=== PATIENT | male | born 1955 | race Caucasian/White ===

== ENCOUNTER 2017-06-08 13:45 | Emergency (ER) | payer BC, OTHER ==
[~2017-06-08] VITALS: Ht 182.9 cm; Wt 74.8 kg
[2017-06-08 13:59] VITALS: BP 129/96
--- NOTE | 2017-06-08 14:27 | ED Cough/URI ---
General Chief Complaint: Cough/Cold/Flu Symptoms Stated Complaint: FLU Nursing Triage Note: PT REPORTS WAS DIAGNOSED WITH THE FLU 05/26/17. PT REPORTS BODY ACHES AND FEVERS HAVE RESOLVED BUT REPORTS HE HAS HAD INCREASE IN SOA AND PAIN WITH INSPIRATION. PT ALSO REPORTS A DRY PRODUCTIVE COUGH. Source: patient Exam Limitations: no limitations History of Present Illness Time seen by provider: 14:24 Initial Comments The patient is a 62-year-old white male who presents with a chief complaint of cough and general malaise. He reports that on 05/26 he was diagnosed with flu and given medication for the same. He is continued to cough and feels generally fatigued. He now believes he has pneumonia. He has not been running a fever. He is a former smoker but stopped 15 years ago. He does not describe chills or sweats Timing/Duration: week Severity/Quality: moderate, dry cough Associated Symptoms: chest pain/soreness, cough, dizziness Allergies and Home Medications Allergies Coded Allergies: sulfamethoxazole (Verified Adverse Reaction, Unknown, 06/08/17) tamsulosin (Verified Adverse Reaction, Unknown, 06/08/17) trimethoprim (Verified Adverse Reaction, Unknown, 06/08/17) Home Medications Metoprolol Tartrate 25 Mg Tablet, (Reported) Constitutional: see HPI EENTM: no symptoms reported Respiratory: cough, dyspnea on exertion Cardiovascular: no symptoms reported Gastrointestinal: no symptoms reported Genitourinary: no symptoms reported Musculoskeletal: back pain, muscle pain Skin: no symptoms reported Psychiatric/Neurological: No Symptoms Reported Hematologic/Lymphatic: No Symptoms Reported Immunological/Allergic: no symptoms reported Past Pejdwff-Balbwa-Dhrgvv Hx Patient Social History Alcohol Use: Occasionally Uses Recreational Drug Use: No Smoking Status: Former Smoker Former Smoker, Quit: Jun 26, 2000 Recent Foreign Travel: No Contact w/Someone Who Travel: No Recent Infectious Disease Expo: No Recent Hopitalizations: No Physical Abuse: No Sexual Abuse: No Mistreated: No Fear: No Seasonal Allergies Seasonal Allergies: No Respiratory History of Respiratory Disorde: No Cardiovascular History of Cardiac Disorders: Yes Cardiac Disorders: Hypertension Genitourinary History of Genitourinary Disor: No Gastrointestinal History of Gastrointestinal Di: No Musculoskeletal History of Musculoskeletal Dis: No Endocrine History of Endocrine Disorders: No HEENT History of HEENT Disorders: No Cancer History of Cancer: No Psychosocial History of Psychiatric Problem: No Suicide Risk Score: 0 Integumentary History of Skin or Integumenta: No Blood Transfusions History of Blood Disorders: No Physical Exam Vital Signs Vital Sign - Last 12Hours 06/08/17 13:59 Temp 97.9 Pulse 77 Resp 18 B/P (MAP) 158/94 (115) Pulse Ox 98 O2 Delivery Room Air Capillary Refill : Less Than 3 Seconds General Appearance: mild distress Eyes: Bilateral Eye Normal Inspection HEENT: normal ENT inspection Neck: full range of motion Respiratory: chest non-tender, lungs clear, normal breath sounds, no respiratory distress, no accessory muscle use, respiratory distress Cardiovascular: normal peripheral pulses, regular rate, rhythm, no edema, no gallop, no JVD, no murmur Gastrointestinal: normal bowel sounds, non tender, soft, no organomegaly, no pulsatile mass Extremities: normal range of motion, non-tender, normal inspection, no pedal edema, no calf tenderness, normal capillary refill, pelvis stable Neurologic/Psychiatric: line up examiner II-XII nml as tested, no motor/sensory deficits, alert, normal mood/affect, oriented x 3 Skin: normal color, warm/dry, cyanosis, cool, diaphoresis, damp Lymphatic: no adenopathy Progress/Results/Core Measures Suspected Sepsis Recent Fever Within 48 Hours: No Infection Criteria Present: Suspected New Infection New/Unexplained Altered Menta: No Sepsis Screen: No Definite Risk Sepsis Diagnosis: SIRS Temperature:97.9 Pulse: 77 Respiratory Rate: 18 Laboratory Tests 06/08/17 14:49: White Blood Count 8.9 Blood Pressure 158 /94 Mean: 115 Laboratory Tests 06/08/17 14:49: Platelet Count 275 Results/Orders Lab Results Laboratory Tests Test 06/08/17 14:49 Range/Units White Blood Count 8.9 4.3-11.0 10^3/uL Red Blood Count 5.12 4.35-5.85 10^6/uL Hemoglobin 15.7 13.3-17.7 G/DL Hematocrit 45 40-54 % Mean Corpuscular Volume 88 80-99 FL Mean Corpuscular Hemoglobin 31 25-34 PG Mean Corpuscular Hemoglobin Concent 35 32-36 G/DL Red Cell Distribution Width 13.3 10.0-14.5 % Platelet Count 275 130-400 10^3/uL Mean Platelet Volume 9.4 7.4-10.4 FL Neutrophils (%) (Auto) 76 H 42-75 % Lymphocytes (%) (Auto) 14 12-44 % Monocytes (%) (Auto) 8 0-12 % Eosinophils (%) (Auto) 2 0-10 % Basophils (%) (Auto) 0 0-10 % Neutrophils # (Auto) 6.7 1.8-7.8 X 10^3 Lymphocytes # (Auto) 1.2 1.0-4.0 X 10^3 Monocytes # (Auto) 0.7 0.0-1.0 X 10^3 Eosinophils # (Auto) 0.2 0.0-0.3 10^3/uL Basophils # (Auto) 0.0 0.0-0.1 10^3/uL Neutrophils % (Manual) 67 % Lymphocytes % (Manual) 13 % Monocytes % (Manual) 10 % Eosinophils % (Manual) 3 % Band Neutrophils 7 % Toxic Granulation 1+ Blood Morphology Comment NORMAL My Orders Orders - BRENNAN WELDON MD Cbc With Automated Diff (06/08/17 14:22) Manual Differential (06/08/17 14:49) Vital Signs/I&O Vital Sign - Last 12Hours 06/08/17 06/08/17 13:59 13:59 Temp 97.9 Pulse 77 Resp 18 B/P (MAP) 158/94 (115) Pulse Ox 98 O2 Delivery Room Air Capillary Refill : Less Than 3 Seconds Blood Pressure Mean: 115 Departure Communication (Admissions) Family Conversation 1526 x-ray and CBC reviewed with patient. Impression Impression: Primary Impression: Influenza-like symptoms Disposition: 01 HOME, SELF-CARE Condition: Stable/Unchanged Departure-Patient Inst. Decision time for Depature: 15:24 Referrals: NO,LOCAL PHYSICIAN (PCP) Primary Care Physician Patient Instructions: Flu, Adult (DC) Add. Discharge Instructions: All discharge instructions reviewed with patient and/or family. Voiced understanding. You should be nearing the end of the flu symptoms. Continue extra rest, lots of liquids, use Aleve or Advil to reduce aches. A steamy shower may aid taking a deep breath. BRENNAN WELDON MD Jun 08, 2017 14:27
[2017-06-08] MEDS ORDERED: METO-333 (14:35)
--- NOTE | 2017-06-08 14:57 | Diagnostic Imaging Report ---
INDICATION: Cough and rib pain. PA and lateral views of the chest were obtained. FINDINGS: The heart size is normal. There is some right upper lobe atelectasis and/or pneumonitis. There is no pleural effusion or pneumothorax. The mediastinum is unremarkable. IMPRESSION: Right upper lobe atelectasis and/or pneumonitis. Dictated by: Dictated on workstation # [id number]
[2017-06-08 14:58] LABS: BASOPHILS % (AUTO) 0 % (0-10); EOSINOPHILS # (AUTO) 0.2 10^3/uL (0.0-0.3); EOSINOPHILS % (AUTO) 2 % (0-10); HEMATOCRIT 45 % (40-54); HEMOGLOBIN 15.7 G/DL (13.3-17.7); LYMPHOCYTES # (AUTO) 1.2 X 10^3 (1.0-4.0); LYMPHOCYTES % (AUTO) 14 % (12-44); MEAN CORPUSCULAR HEMOGLOBIN 31 PG (25-34); MEAN CORPUSCULAR HGB CONC 35 G/DL (32-36); MEAN CORPUSCULAR VOLUME 88 FL (80-99); MEAN PLATELET VOLUME 9.4 FL (7.4-10.4); MONOCYTES # (AUTO) 0.7 X 10^3 (0.0-1.0); MONOCYTES % (AUTO) 8 % (0-12); NEUTROPHILS # (AUTO) 6.7 X 10^3 (1.8-7.8); NEUTROPHILS % (AUTO) 76 % (42-75); PLATELET COUNT 275 10^3/uL (130-400); RED BLOOD COUNT 5.12 10^6/uL (4.35-5.85); RED CELL DISTRIBUTION WIDTH 13.3 % (10.0-14.5); WHITE BLOOD COUNT 8.9 10^3/uL (4.3-11.0)
[2017-06-08 15:13] LABS: BAND NEUTROPHILS 7 %; EOSINOPHILS % (MANUAL) 3 %; LYMPHOCYTES % (MANUAL) 13 %; MONOCYTES % (MANUAL) 10 %; NEUTROPHILS % (MANUAL) 67 %
[2017-06-08 15:14] LABS: RBC MORPH NORMAL; TOXIC GRANULATION/VACUOLAZATIO 1+
== END 2017-06-08 15:34 | disposition home or self-care (01) ==
LOC: ER 13:51
DX: J11.1 Influenza due to unidentified influenza virus with other respiratory manifestations (principal); I10 Essential (primary) hypertension; Z87.891 Personal history of nicotine dependence
CPT/HCPCS: 36415; 71046; 85007; 85027; 99283

== ENCOUNTER 2021-01-25 19:30 | Emergency (ER) | payer BC ==
[~2021-01-25 19:30] MED LIST: METO-333
--- NOTE | 2021-01-25 19:35 | ED Dyspnea ---
General Stated Complaint: LOW O2 History of Present Illness Date Seen by Provider: Jan 25, 2021 Time Seen by Provider: 19:35 Initial Comments 66-year-old male presents with feeling of shortness of breath/dyspnea. Patient reports that he was diagnosed yesterday with Covid 19. The symptoms started 2 days ago. Patient reports some chronic lung disease on inhaled healers with frequent pneumonia. He was concerned that maybe his oxygen was low and had no way to check it. Patient reports that the feeling shortness of breath is improved. Patient had no other complaints at this time. Allergies and Home Medications Allergies Coded Allergies: sulfamethoxazole (Verified Adverse Reaction, Unknown, 06/08/17) tamsulosin (Verified Adverse Reaction, Unknown, 06/08/17) trimethoprim (Verified Adverse Reaction, Unknown, 06/08/17) Patient Home Medication List Home Medication List Reviewed: Yes Review of Systems Review of Systems Constitutional: No chills, No fever Respiratory: cough, short of breath Cardiovascular: No chest pain Gastrointestinal: no symptoms reported Genitourinary: no symptoms reported Musculoskeletal: no symptoms reported Skin: no symptoms reported Psychiatric/Neurological: No Symptoms Reported Endocrine: No Symptoms Reported Hematologic/Lymphatic: No Symptoms Reported Past Iptxnrp-Iyfbcv-Jyciio Hx Seasonal Allergies Seasonal Allergies: No Past Medical History Respiratory: No Cardiac: Yes Hypertension Genitourinary: No Gastrointestinal: No Musculoskeletal: No Endocrine: No HEENT: No Cancer: No Psychosocial: No Integumentary: No Blood Disorders: No Physical Exam Vital Signs Vital Signs - First Documented 01/25/21 19:32 Temp 35.6 Pulse 70 Resp 18 B/P (MAP) 164/102 (122) Pulse Ox 99 O2 Delivery Room Air Capillary Refill : Height, Weight, BMI Height: 6'" Weight: 165lbs. oz. [id number]; BMI Method:Stated General Appearance: No Apparent Distress, WD/WN Neck: Full Range of Motion, Normal Inspection Respiratory: Lungs Clear, Normal Breath Sounds, No Accessory Muscle Use, No Respiratory Distress Cardiovascular: Regular Rate, Rhythm, No Edema Extremity: Normal Capillary Refill, Normal Inspection Neurologic/Psychiatric: Alert, Oriented x3 Skin: Normal Color, Warm/Dry Progress/Results/Core Measures Results/Orders Lab Results Laboratory Tests Test 01/25/21 19:42 Range/Units White Blood Count 2.6 L 4.3-11.0 10^3/uL Red Blood Count 5.28 4.30-5.52 10^6/uL Hemoglobin 16.5 13.3-17.7 g/dL Hematocrit 47 40-54 % Mean Corpuscular Volume 89 80-99 fL Mean Corpuscular Hemoglobin 31 25-34 pg Mean Corpuscular Hemoglobin Concent 35 32-36 g/dL Red Cell Distribution Width 13.1 10.0-14.5 % Platelet Count 141 130-400 10^3/uL Mean Platelet Volume 9.4 9.0-12.2 fL Immature Granulocyte % (Auto) 0 % Neutrophils (%) (Auto) 35 L 42-75 % Lymphocytes (%) (Auto) 51 H 12-44 % Monocytes (%) (Auto) 12 0-12 % Eosinophils (%) (Auto) 2 0-10 % Basophils (%) (Auto) 0 0-10 % Neutrophils # (Auto) 0.9 L 1.8-7.8 X 10^3 Lymphocytes # (Auto) 1.3 1.0-4.0 X 10^3 Monocytes # (Auto) 0.3 0.0-1.0 X 10^3 Eosinophils # (Auto) 0.1 0.0-0.3 10^3/uL Basophils # (Auto) 0.0 0.0-0.1 10^3/uL Immature Granulocyte # (Auto) 0.0 0.0-0.1 10^3/uL Sodium Level 135 135-145 MMOL/L Potassium Level 3.7 3.6-5.0 MMOL/L Chloride Level 103 98-107 MMOL/L Carbon Dioxide Level 20 L 21-32 MMOL/L Anion Gap 12 5-14 MMOL/L Blood Urea Nitrogen 12 7-18 MG/DL Creatinine 1.09 0.60-1.30 MG/DL Estimat Glomerular Filtration Rate 68 BUN/Creatinine Ratio 11 Glucose Level 97 70-105 MG/DL Calcium Level 8.7 8.5-10.1 MG/DL Corrected Calcium 8.5 8.5-10.1 MG/DL Total Bilirubin 0.7 0.1-1.0 MG/DL Aspartate Amino Transf (AST/SGOT) 28 5-34 U/L Alanine Aminotransferase (ALT/SGPT) 23 0-55 U/L Alkaline Phosphatase 119 40-136 U/L Total Protein 6.5 6.4-8.2 GM/DL Albumin 4.2 3.2-4.5 GM/DL My Orders Orders - RICHARD PRINCE DO Chest 1 View Ap/Pa Only (01/25/21 19:41) Cbc With Automated Diff (01/25/21 19:41) Comprehensive Metabolic Panel (01/25/21 19:41) Vital Signs/I&O 01/25/21 19:32 Temp 35.6 Pulse 70 Resp 18 B/P (MAP) 164/102 (122) Pulse Ox 99 O2 Delivery Room Air Progress Progress Note : Progress Note Patient with low white count consistent with Covid. Patient with a negative chest x-ray, patient's O2 saturations remained in the upper 90s. I recommend he get a pulse ox. I will try to arrange for him to get a Regeneron infusion after discussion of risks and benefits due to his chronic lung disease and high risk. Patient stable and discharged home Diagnostic Imaging Diagonstic Imaging: Xray Plain Films/CT/US/NM/MRI: chest Comments CHEST 1 VIEW AP/PA ONLY HISTORY: Shortness of breath, Covid positive. COMPARISON: 06/08/2017. TECHNIQUE: Frontal view of the chest. FINDINGS: There is chronic scarring in the right upper lobe which appears stable since 2018. No new consolidation is seen. There is no pleural effusion or pneumothorax. The cardiac silhouette is normal in size. IMPRESSION: No acute pulmonary abnormality. Reviewed: Reviewed by Me, Reviewed/Discussed Departure Impression Primary Impression: COVID-19 Disposition: HOME, SELF-CARE Condition: Stable Departure-Patient Inst. Referrals: NO,LOCAL PHYSICIAN (PCP/Family) Primary Care Physician Patient Instructions: COVID-19 ED, REGEN-COV (casirivimab and imdevimab) FDA Fact Sheet RICHARD PRNICE DO Jan 25, 2021 19:35
--- OUTSIDE RECORDS SUMMARY | 2021-01-25 19:35 | XMS REPORT | Clinical Summary ---
Author Author [facility] Organization [facility] Address Unknown Phone Unavailable Care Team Providers Care Bullet Maker Name Role Phone PCP Unavailable Allergies Not on File Medications Not on file Active Problems Problem Noted Date Major depressive disorder, single episode 01/22/2012 Overview: Formatting of this note might be differ ent from the original. ICD-10 conversion Difficulty breathing 01/22/2012 Abnormal finding on lung imaging 01/21/2012 Overview: Formatting of this note might be differ ent from the original. IMO Update Enlarged lymph nodes 01/21/2012 Overview: Formatting of this note might be differ ent from the original. ICD-10 conversion Family History Medical History Relation Name Comments Migraines Daughter Migraine Headache; Cancer Father Cancer; Lymphoma Father Malignant Lymphoma; approximately 1999 Heart failure Maternal Congestive Heart Fa ilure; Grandmother Coronary artery disease Mother Coronary Arter y Disease; Diabetes Mother Diabetes Mellitus; Hypertension Mother Hypertension; Prostate cancer Paternal Prostate Cancer; Grandfather Arthritis Sister Arthritis; Fibromyalgia Sister Fibromyalgia; Hypertension Sister Hypertension; Relation Name Status Comments Daughter Father Maternal Grandmother Mother Paternal Grandfather Sister Social History Date Tobacco Use Types Packs/Day Years Used Former Smoker Sex Assigned at Date Recorded Not on file Last Filed Vital Signs Reading Time Taken Comments Vital Sign 116/96 02/26/2012 1:50 PM CDT Blood Pressure 72 02/26/2012 1:50 PM CDT Pulse - - Temperature 16 02/26/2012 1:50 PM CDT Respiratory Rate 98% 02/26/2012 1:50 PM CDT Oxygen Saturation - - Inhaled Oxygen Concentration 72.2 kg (159 lb 1.6 oz) 02/26/2012 1:50 PM CDT Weight 176.5 cm (5' 9.5") 02/26/2012 1:50 PM CDT Height 23.16 02/26/2012 1:50 PM CDT Body Mass Index Plan of Treatment Not on file Results Not on filefrom Last 3 Months
--- OUTSIDE RECORDS SUMMARY | 2021-01-25 19:35 | XMS REPORT | Clinical Summary ---
Author Author [facility] Organization [facility] Address Unknown Phone Unavailable Care Team Providers Care Assistant Food Service Manager Name Role Phone Duane Lira MD PCP Stephanie Hickman RN Unavailable Unavailable Source Comments Some departments are not documenting in the electronic medical record. If you d o not see the information that you expected, contact Release of Information in [facility] Health Information Management department at [phone] for further assistan ce in locating additional records.[facility] Allergies No Known Active Allergies Medications End Date Status Medication Sig Dispensed Refills Start Date Active NO HOME MEDICATIONS 0 Active Problems Not on file Surgical History Surgery Date Site/Laterality Comments VT APPENDECTOMY Appendectomy Social History Date Tobacco Use Types Packs/Day Years Used Current Every Day Smoker 0.25 20.0 Comments Alcohol Use Standard Drinks/Week occasional No 0 (1 standard drink = 0.6 o z pure alcohol) Sex Assigned at Date Recorded Not on file Last Filed Vital Signs Reading Time Taken Comments Vital Sign 148/90 09/28/2007 1:00 PM CDT Blood Pressure 92 09/28/2007 1:00 PM CDT Pulse 36.5 C (97.7 F) 09/28/2007 1:00 PM CDT Temperature - - Respiratory Rate 98% 09/28/2007 1:00 PM CDT Oxygen Saturation - - Inhaled Oxygen Concentration - - Weight - - Height - - Body Mass Index Plan of Treatment Health Maintenance Due Date Last Done Comments HIV SCREENING 01/20/1972 DTAP/TDAP VACCINES (1 - 1975 Tdap) HEPATITIS C SCREENING 1975 PHYSICAL (COMPREHENSIVE) 1975 EXAM COLORECTAL CANCER 2007 SCREENING SHINGLES RECOMBINANT 2007 VACCINE (1 of 2) INFLUENZA VACCINE 03/02/2021 Results Not on filefrom Last 3 Months
[2021-01-25 19:51] LABS: HEMATOCRIT 47 % (40-54); HEMOGLOBIN 16.5 g/dL (13.3-17.7); MEAN CORPUSCULAR HEMOGLOBIN 31 pg (25-34); MEAN CORPUSCULAR HGB CONC 35 g/dL (32-36); MEAN CORPUSCULAR VOLUME 89 fL (80-99); MEAN PLATELET VOLUME 9.4 fL (9.0-12.2); PLATELET COUNT 141 10^3/uL (130-400); WHITE BLOOD COUNT 2.6 10^3/uL (4.3-11.0)
[2021-01-25 19:52] LABS: BASOPHILS % (AUTO) 0 % (0-10); EOSINOPHILS # (AUTO) 0.1 10^3/uL (0.0-0.3); EOSINOPHILS % (AUTO) 2 % (0-10); LYMPHOCYTES # (AUTO) 1.3 X 10^3 (1.0-4.0); LYMPHOCYTES % (AUTO) 51 % (12-44); MONOCYTES # (AUTO) 0.3 X 10^3 (0.0-1.0); MONOCYTES % (AUTO) 12 % (0-12); NEUTROPHILS # (AUTO) 0.9 X 10^3 (1.8-7.8); NEUTROPHILS % (AUTO) 35 % (42-75)
[2021-01-25 20:07] LABS: POTASSIUM 3.7 MMOL/L (3.6-5.0)
[2021-01-25 20:08] LABS: ALBUMIN 4.2 GM/DL (3.2-4.5); BILIRUBIN,TOTAL 0.7 MG/DL (0.1-1.0); CALCIUM 8.7 MG/DL (8.5-10.1); CREATININE SERUM 1.09 MG/DL (0.60-1.30); TOTAL PROTEIN 6.5 GM/DL (6.4-8.2)
--- NOTE | 2021-01-25 20:08 | Diagnostic Imaging Report ---
HISTORY: Shortness of breath, Covid positive. COMPARISON: 06/08/2017. TECHNIQUE: Frontal view of the chest. FINDINGS: There is chronic scarring in the right upper lobe which appears stable since 2018. No new consolidation is seen. There is no pleural effusion or pneumothorax. The cardiac silhouette is normal in size. IMPRESSION: No acute pulmonary abnormality. Dictated by: Dictated on workstation # [id number]
[2021-01-25 20:39] VITALS: BP 147/89
== END 2021-01-25 20:39 | disposition home or self-care (01) ==
LOC: EDUNIT# 19:30 → ER FS 19:32
DX: U07.1 COVID-19 (principal); I10 Essential (primary) hypertension
CPT/HCPCS: 36415; 71045; 80053; 85025

== ENCOUNTER → 2021-01-29 | Outpatient (CLI) | payer BC ==
[~2021-01-29] VITALS: Ht 182 cm; Wt 72.7 kg
[~2021-01-29] MED LIST changes: +ACETAMINOPHEN 500 MG TAB (TYLENOL) PO PRN; +CASIRIVIMAB/IMDEVIMAB 1,200 MG in NS (IVPB) 250 ML IV ONE; +EPINEPHrine INJECTION 1 MG/ML AMP IM PRN; +ONDANSETRON 4 MG/2 ML (SDV) Z0FRAN IV PRN; +POTA20TA15 PO; +PRD20T PO; +RT-ALBUINH IH; +diphenhydrAMINE 50 MG/ML INJ (BENADRYL) IV PRN
[2021-01-29 11:32] VITALS: BP 150/95
[2021-01-29 12:35] VITALS: BP 158/90
== END ==
LOC: INFUSION 11:28
PROVIDERS: ATTEND Student in an Organized Health Care Education/Training Program
DX: Z23 Encounter for immunization (principal); U07.1 COVID-19

== ENCOUNTER 2021-02-01 00:55 | Emergency (ER) | payer BC ==
[~2021-02-01] VITALS: Ht 183 cm; Wt 75.0 kg
[~2021-02-01 00:55] MED LIST changes: -ACETAMINOPHEN 500 MG TAB (TYLENOL) PO PRN; -CASIRIVIMAB/IMDEVIMAB 1,200 MG in NS (IVPB) 250 ML IV ONE; -EPINEPHrine INJECTION 1 MG/ML AMP IM PRN; -ONDANSETRON 4 MG/2 ML (SDV) Z0FRAN IV PRN; -POTA20TA15 PO; -PRD20T PO; -RT-ALBUINH IH; -diphenhydrAMINE 50 MG/ML INJ (BENADRYL) IV PRN
--- NOTE | 2021-02-01 01:23 | ED Dyspnea ---
General Stated Complaint: CHEST HEAVINESS;BREATHING COMPLICATIONS Source of Information: Patient Exam Limitations: No Limitations History of Present Illness Date Seen by Provider: Feb 01, 2021 Time Seen by Provider: 01:22 Initial Comments 66-year-old male presents with complaint of shortness of air for the past several days. Diagnosed with coronavirus about 8 days ago, seen in this ER on 01/25 and set up with a "Bam" infusion yesterday, patient says has been short of air since then. Allergies and Home Medications Allergies Coded Allergies: sulfamethoxazole (Verified Adverse Reaction, Unknown, 06/08/17) tamsulosin (Verified Adverse Reaction, Unknown, 06/08/17) trimethoprim (Verified Adverse Reaction, Unknown, 06/08/17) Patient Home Medication List Home Medication List Reviewed: Yes Review of Systems Review of Systems Constitutional: No fever, No malaise, No weakness EENTM: No nose congestion, No throat pain, No throat swelling Respiratory: No cough; short of breath; No stridor, No wheezing Cardiovascular: No chest pain, No edema, No palpitations, No syncope Gastrointestinal: No abdominal pain, No nausea, No vomiting Skin: No change in color, No rash Past Vqdjfcj-Qlyvao-Xxxslt Hx Patient Social History Tobacco Use?: No Seasonal Allergies Seasonal Allergies: No Past Medical History Respiratory: No Cardiac: Yes Hypertension Genitourinary: No Gastrointestinal: No Musculoskeletal: No Endocrine: No HEENT: No Cancer: No Psychosocial: No Integumentary: No Blood Disorders: No Physical Exam Vital Signs Vital Signs - First Documented 02/01/21 01:00 Temp 36.7 Pulse 84 Resp 18 B/P (MAP) 189/95 (126) Pulse Ox 99 O2 Delivery Room Air Capillary Refill : Height, Weight, BMI Height: 6'" Weight: 165lbs. oz. 74.790998wa; BMI Method:Stated General Appearance: No Apparent Distress, WD/WN HEENT: PERRL/EOMI, Normal ENT Inspection Neck: Non Tender, Supple Respiratory: Chest Non Tender, Lungs Clear, Normal Breath Sounds, No Accessory Muscle Use, No Respiratory Distress Cardiovascular: Regular Rate, Rhythm, No Edema Gastrointestinal: Non Tender, Soft Extremity: Normal Capillary Refill, Non Tender Neurologic/Psychiatric: Alert, Oriented x3, No Motor/Sensory Deficits, Normal Mood/Affect Skin: Normal Color, Warm/Dry Progress/Results/Core Measures Results/Orders Lab Results Laboratory Tests Test 02/01/21 01:20 Range/Units White Blood Count 4.2 L 4.3-11.0 10^3/uL Red Blood Count 5.20 4.30-5.52 10^6/uL Hemoglobin 16.3 13.3-17.7 g/dL Hematocrit 45 40-54 % Mean Corpuscular Volume 86 80-99 fL Mean Corpuscular Hemoglobin 31 25-34 pg Mean Corpuscular Hemoglobin Concent 36 32-36 g/dL Red Cell Distribution Width 12.5 10.0-14.5 % Platelet Count 184 130-400 10^3/uL Mean Platelet Volume 9.3 9.0-12.2 fL Immature Granulocyte % (Auto) 1 % Neutrophils (%) (Auto) 66 42-75 % Lymphocytes (%) (Auto) 27 12-44 % Monocytes (%) (Auto) 6 0-12 % Eosinophils (%) (Auto) 1 0-10 % Basophils (%) (Auto) 0 0-10 % Neutrophils # (Auto) 2.8 1.8-7.8 X 10^3 Lymphocytes # (Auto) 1.1 1.0-4.0 X 10^3 Monocytes # (Auto) 0.2 0.0-1.0 X 10^3 Eosinophils # (Auto) 0.0 0.0-0.3 10^3/uL Basophils # (Auto) 0.0 0.0-0.1 10^3/uL Immature Granulocyte # (Auto) 0.0 0.0-0.1 10^3/uL Sodium Level 139 135-145 MMOL/L Potassium Level 3.0 L 3.6-5.0 MMOL/L Chloride Level 105 98-107 MMOL/L Carbon Dioxide Level 19 L 21-32 MMOL/L Anion Gap 15 H 5-14 MMOL/L Blood Urea Nitrogen 17 7-18 MG/DL Creatinine 1.00 0.60-1.30 MG/DL Estimat Glomerular Filtration Rate 75 BUN/Creatinine Ratio 17 Glucose Level 159 H 70-105 MG/DL Calcium Level 8.8 8.5-10.1 MG/DL Corrected Calcium 8.5 8.5-10.1 MG/DL Total Bilirubin 0.8 0.1-1.0 MG/DL Aspartate Amino Transf (AST/SGOT) 21 5-34 U/L Alanine Aminotransferase (ALT/SGPT) 18 0-55 U/L Alkaline Phosphatase 130 40-136 U/L C-Reactive Protein 1.27 H <0.50 MG/DL Total Protein 6.9 6.4-8.2 GM/DL Albumin 4.4 3.2-4.5 GM/DL My Orders Orders - LAURASTBENITO SHEA DO Ed Iv/Invasive Line Start (02/01/21 01:23) Cbc With Automated Diff (02/01/21 01:23) Comprehensive Metabolic Panel (02/01/21 01:23) Crp Fs (02/01/21 01:23) Chest 1 View Ap/Pa Only (02/01/21 01:23) Troponin I Fs (02/01/21 01:38) Vital Signs/I&O 02/01/21 02/01/21 01:00 01:31 Temp 36.7 Pulse 84 Resp 18 B/P (MAP) 189/95 (126) Pulse Ox 99 O2 Delivery Room Air Room Air Initial ECG Impression Date: Feb 01, 2021 Initial ECG Impression Time: 01:22 Initial ECG Rhythm: Normal Sinus Initial ECG Intervals: Normal Initial ECG Impression: Normal Initial ECG Comparisson: No Previous ECG Available Diagnostic Imaging Diagonstic Imaging: Xray Plain Films/CT/US/NM/MRI: chest Comments normal CXR without infiltrate or effusion. Compared to CXR 01/25 neither w RAD evidence of coronavirus Reviewed: Reviewed by Me Departure Impression Primary Impression: Dyspnea Qualified Codes: R06.00 - Dyspnea, unspecified Additional Impressions: Hypokalemia COVID-19 Disposition: 01 HOME, SELF-CARE Condition: Stable Departure-Patient Inst. Decision time for Depature: 02:01 Referrals: LUCA FLYNN (PCP/Family) Primary Care Physician Patient Instructions: Shortness of Breath (Dyspnea) (DC), Hypokalemia (DC) Add. Discharge Instructions: Follow up with your PCP in 1 week to repeat labs and another Chest x-ray if you are still feeling shortness or air Take the following daily: Vitamin C- 1000mg twice daily Vitamin D- 4000iu daily Zinc 100mg daily if not contraindicated take an aspirin daily for 2 weeks, then discontinue Scripts Prednisone (Prednisone) 20 Mg Tab 40 MG PO DAILY, #10 TAB 0 Refills Prov: ROVENSTINE,BENITO L DO 02/01/21 Potassium Chloride (Potassium Chloride) 20 Meq Tab.er.prt 20 MEQ PO DAILY, #7 TAB Prov: BENITO HUANG DO 02/01/21 Albuterol Sulfate (PROAIR HFA) 1 Puff Puff 2 PUFF IH Q4H for Dyspean, #1 PUFF 1 PUFF = 90 MCG Prov: BENITO HUANG DO 02/01/21 BENITO HUANG DO Feb 01, 2021 01:23
[2021-02-01 01:35] LABS: HEMATOCRIT 45 % (40-54); HEMOGLOBIN 16.3 g/dL (13.3-17.7); MEAN CORPUSCULAR HEMOGLOBIN 31 pg (25-34); MEAN CORPUSCULAR VOLUME 86 fL (80-99); WHITE BLOOD COUNT 4.2 10^3/uL (4.3-11.0)
[2021-02-01 01:36] LABS: BASOPHILS % (AUTO) 0 % (0-10); EOSINOPHILS % (AUTO) 1 % (0-10); LYMPHOCYTES # (AUTO) 1.1 X 10^3 (1.0-4.0); LYMPHOCYTES % (AUTO) 27 % (12-44); MEAN CORPUSCULAR HGB CONC 36 g/dL (32-36); MEAN PLATELET VOLUME 9.3 fL (9.0-12.2); MONOCYTES # (AUTO) 0.2 X 10^3 (0.0-1.0); MONOCYTES % (AUTO) 6 % (0-12); NEUTROPHILS # (AUTO) 2.8 X 10^3 (1.8-7.8); NEUTROPHILS % (AUTO) 66 % (42-75); PLATELET COUNT 184 10^3/uL (130-400)
[2021-02-01 01:50] LABS: BILIRUBIN,TOTAL 0.8 MG/DL (0.1-1.0); CALCIUM 8.8 MG/DL (8.5-10.1); TOTAL PROTEIN 6.9 GM/DL (6.4-8.2)
[2021-02-01 01:51] LABS: ALBUMIN 4.4 GM/DL (3.2-4.5)
[2021-02-01] MEDS ORDERED: POTA20TA15 PO (02:03)
[2021-02-01] MEDS ORDERED: PRD20T PO (02:03)
[2021-02-01] MEDS ORDERED: RT-ALBUINH IH (02:03)
[2021-02-01 02:15] VITALS: BP 148/96
[2021-02-01] MEDS ORDERED: RT-ALBUTEROL/IPRATROPIUM 3 ML (DUONEB) VIAL INH ONE (02:15)
--- NOTE | 2021-02-01 06:55 | Diagnostic Imaging Report ---
Indication: Shortness of breath Portable chest 1:32 AM Heart size and pulmonary vascularity are normal. Lungs are clear. There are no effusions or pneumothoraces. IMPRESSION: Negative chest. Dictated by: Dictated on workstation # [id number]
== END 2021-02-01 02:20 | disposition home or self-care (01) ==
LOC: EDUNIT# 00:55 → ER FS 01:00
DX: U07.1 COVID-19 (principal); E87.6 Hypokalemia; I10 Essential (primary) hypertension
CPT/HCPCS: 36415; 71045; 80053; 84484; 85025; 86141; 93005